=== PATIENT | female | born 1975 | race Caucasian/White ===

== ENCOUNTER 2018-07-13 05:17 | Outpatient (CLI) | payer BC, SELFPAY ==
--- NOTE | 2018-07-13 07:52 | DI.MAMMO_ITS ---
SYMPTOMS/DIAGNOSIS: SCREENING, Z12.31, FAMILY H/O BREAST CA, Z80.3 MAMMOGRAM: Mammograms were interpreted according to the usual protocol including computer analysis with CAD system, tomosynthesis and C view imaging. The breasts are heterogeneously dense. No dominant mass or clumped microcalcification is identified in either breast. The current examination is compared with previous examinations including 07/01 and there is a question of interval development of an area of vaguely rounded asymmetric density projected superiorly on MLO view of the left breast and questionably seen in the lateral portion of the left breast on tomosynthesis views. No other significant change seen. Additional mammographic views of the area of questionable asymmetric density/nodularity are requested to include CC and MLO spot compression views of the left breast. CONCLUSION: Additional mammographic views of the left breast requested as described above. Breast ultrasound may be indicated as well depending on the results of the additional mammographic views. Category O. Breast density Category C. MQSA ASSESSMENT OF FINDINGS: Incomplete: Needs additional imaging evaluation. Category 0. Patient will receive a letter notifying them of these results. Bi-RADS category C. The breasts are heterogeneously dense, which may obscure small masses.
== END 2018-07-13 05:37 ==
PROVIDERS: PCP Nurse Practitioner Women's Health; Visit Provider Nurse Practitioner Women's Health
DX: Z12.31 Encounter for screening mammogram for malignant neoplasm of breast (principal); Z80.3 Family history of malignant neoplasm of breast; R92.8 Other abnormal and inconclusive findings on diagnostic imaging of breast
CPT/HCPCS: 77063; 77067

== ENCOUNTER 2018-07-15 11:01 | Outpatient (CLI) | payer BC, SELFPAY ==
--- NOTE | 2018-07-15 14:43 | DI.COMBO_ITS ---
SYMPTOMS/DIAGNOSIS: F/U MAMMO, EVAL ASYMMETRIC DENSITY/NODULARITY LT BREAST ADDITIONAL MAMMOGRAPHIC VIEWS LEFT BREAST AND LEFT BREAST ULTRASOUND: Additional images are interpreted according to the usual protocol including tomosynthesis and 2D imaging. Additional mammographic views left breast and left breast ultrasound are interpreted in conjunction. These examinations were obtained to evaluate questioned nodule in the upper outer quadrant of the left breast on recurrent mammogram. Additional mammographic views confirm a smooth walled nodule of the upper outer quadrant of the left breast measuring 9-10 mm in diameter. This corresponds to an ultrasonographically identified fairly low echogenicity but solid lesion with some internal heterogeneity and moderately irregular border. No increased internal vascular flow seen. CONCLUSION: Indeterminate left breast mass, this measures about 9 mm mammographically and 11 mm ultrasonographically. This does not have typical characteristics of a fibroadenoma and biopsy is recommended to evaluate the possibility of malignancy. Category IV. Breast density Category C. MQSA ASSESSMENT OF FINDINGS: Suspicious. Biopsy should be considered. Category 4. Patient will receive a letter notifying them of these results. Bi-RADS category C. The breasts are heterogeneously dense, which may obscure small masses.
== END 2018-07-15 11:21 ==
PROVIDERS: PCP Nurse Practitioner Women's Health; Visit Provider Nurse Practitioner Women's Health
DX: Z12.31 Encounter for screening mammogram for malignant neoplasm of breast (principal); R92.8 Other abnormal and inconclusive findings on diagnostic imaging of breast; N63.21 Unspecified lump in the left breast, upper outer quadrant
CPT/HCPCS: 76642; 77063; 77067

== ENCOUNTER 2018-07-26 01:16 | Outpatient (CLI) | payer BC, SELFPAY ==
--- NOTE | 2018-07-26 13:30 | BREAST_PTH ---
PATIENT: Meghana Cuevas LOC: [facility] U#:[id number] AGE/SX: 43/F ROOM: RE07/26/[address]: Love Kelley MD : [id number] BED: DIS: 07/26/2018 SPEC #: [id number] RECD: 07/26/18 15:29 STATUS: EUSEBIO RERobin #: [id number] SYL: 07/26/18 13:[address]: Love Kelley DEPT: Surgical Specimen RECD BY: Kasey Sparks ENTERED: 07/26/18 15:31 SP TYPE: Breast OTHR DR: Candace Barrios Tissues: 1 - BREAST BX NEEDLE Procedures: GROSS AND MICRO LEVEL 4 Comments: [id number]
--- NOTE | 2018-07-26 13:59 | DI.US_ITS ---
SYMPTOMS/DIAGNOSIS: LEFT BREAST MASS LEFT BREAST BIOPSY: Sonography was utilized by Dr. Love Kelley during the performance of a left breast biopsy. A hypoechoic mass is seen at the 1 o'clock position of the left breast 2 cm from the nipple. Biopsy was performed by Dr. Kelley. Please refer to the procedure report for complete details.
--- NOTE | 2018-07-26 14:27 | W.PM.OP ---
Date of service: 07/26/18 Time of Service: 13:30 Operative Note DATE OF PROCEDURE: 07/26/18 PRE-OP DIAGNOSIS: Left breast lesion POST-OP DIAGNOSIS: same PROCEDURE: US guided needle Core bx of left Breast needle SURGEON: Love Kelley ANESTHESIA: local ESTIMATED BLOOD LOSS: 3 PATHOLOGY: other (core needle bx) COMPLICATIONS: None Patient's condition: stable Implants: titanium clip Indications: Ms. Cuevas is a 43-year-old female who I saw in the office last [place] with a new left breast lesion. Patient underwent a routine mammogram followed by ultrasound and was noted to have a 1.1 cm lesion in the left breast. It was categorized as a category 4. Ultrasound biopsy was recommended. Risk, benefits, complications were reviewed with her in the office and again in the radiology department and she wished to proceed. No guarantees were given or implied. Procedure Description: After informed consent was obtained the patient was placed in a supine position on the radiology table. Her left breast was exposed and the lesion was identified with ultrasound. Using a skin marker the skin just below the lesion was marked. The area was cleaned with ChloraPrep. A small 3 mm incision was made with an 11 blade. Using a 14-gauge core needle biopsy for biopsies were done of the lesion under ultrasound guidance. A small titanium marker was then also placed under ultrasound guidance into the lesion. The skin was cleaned and dried and a pressure dressing was applied. The patient tolerated the procedure well. There were no immediate complications. I will call the patient once we have results of her biopsies.
== END 2018-07-26 01:36 ==
PROVIDERS: PCP Nurse Practitioner Women's Health; Visit Provider Surgery
DX: N60.12 Diffuse cystic mastopathy of left breast (principal); Z80.3 Family history of malignant neoplasm of breast
CPT/HCPCS: 19083; 76942; 88305

== ENCOUNTER 2019-07-20 01:29 | Outpatient (CLI) | payer BC, SELFPAY ==
--- NOTE | 2019-07-20 15:45 | DI.MAMMO_ITS ---
EXAM: MG MAMMO SCREENING CLINICAL HISTORY: SCREENING, Z12.31, FAMILY HX BREAST CA, Z80.3 TECHNIQUE: Mammograms were interpreted according to the usual protocol including computer analysis w [employer] CAD system, tomosynthesis and C-view imaging. COMPARISON: June 2018 FINDINGS: The breasts are heterogeneously dense. No dominant mass or clumped microcalcification is identified in either breast. Left breast upper outer quadrant biopsy clip noted. Examination is compared with previous examinations including June 2018 and there is new area of no dularity projected in the lateral aspect of right breast on CC view measuring about 7 millimeters in diameter, this is incompletely visualized. No other significant change. IMPRESSION: Additional mammographic views of the right breast are requested to evaluate the possible new small ri ght breast mass, breast ultrasound recommended as well. Category 0, breast density category C. BI-RADS Cat 0 - Assessment Incomplete: Need additional imaging evaluation Breast Density - Category C - Heterogeneously dense
== END 2019-07-20 01:49 ==
PROVIDERS: PCP Nurse Practitioner Women's Health; Visit Provider Nurse Practitioner Women's Health
DX: Z12.31 Encounter for screening mammogram for malignant neoplasm of breast (principal); Z80.3 Family history of malignant neoplasm of breast; R92.8 Other abnormal and inconclusive findings on diagnostic imaging of breast
CPT/HCPCS: 77063; 77067

== ENCOUNTER 2019-07-25 01:05 | Outpatient (CLI) | payer BC, SELFPAY ==
--- NOTE | 2019-07-25 14:45 | DI.MAMMO_ITS ---
EXAM: MG MAMMO SCREEN CALL BACK UNI AND US BREAST RT LIMITED CLINICAL HISTORY: NEW AREA OF NODULARITY PROJECTED IN LATERAL ASPECT RT BREAST MEASURING ABOUT 7 MM TECHNIQUE: Ultrasound performed using standard protocol. COMPARISON: US breast LT limited from 07/15/2018 MG mammo screen call back UNI from 07/15/2018 MG MAMMO SCREEN CALL BACK UNI from 07/25/2019 FINDINGS: A CC spot compression view of the lateral right breast was performed. There is a small persistent ci rcumscribed area of nodularity. It is not definitely identified on the MLO view. Ultrasound shows a 5 millimeter cyst in the 8 o'clock position of the lower outer quadrant, 4 centime ters from the nipple. Two adjacent smaller cysts were seen. A cluster of cysts is seen posteriorly in the 9 o'clock position 2 centimeters from the nipple. No suspicious masses are identified. IMPRESSION: BI-RADS category 2, negative with benign findings. Yearly screening mammography is recommended. BI-RADS Cat 2 - Benign Findings Breast Density - Category C - Heterogeneously dense
== END 2019-07-25 01:25 ==
PROVIDERS: PCP Nurse Practitioner Women's Health; Visit Provider Nurse Practitioner Women's Health
DX: Z12.31 Encounter for screening mammogram for malignant neoplasm of breast (principal); R92.8 Other abnormal and inconclusive findings on diagnostic imaging of breast; N60.11 Diffuse cystic mastopathy of right breast
CPT/HCPCS: 76642; 77063; 77067

== ENCOUNTER 2019-09-12 15:15 | Outpatient (CLI) | payer BC, SELFPAY ==
[2019-09-15 11:14] LABS: SARS-CoV-2 RNA Undetected (Undetected); SARS-CoV-2 Specimen Source Nasal
== END 2019-09-12 15:35 ==
PROVIDERS: PCP Nurse Practitioner Women's Health; Visit Provider Nurse Practitioner Family
DX: Z20.828 Contact with and (suspected) exposure to other viral communicable diseases (principal); R50.9 Fever, unspecified; R06.02 Shortness of breath
CPT/HCPCS: U0003

== ENCOUNTER 2020-07-24 02:03 | Outpatient (CLI) | payer OTHER, SELFPAY ==
--- NOTE | 2020-07-24 | DI.MAMMO_ITS ---
EXAM: MAMMO SCREENING CLINICAL HISTORY: SCREENING, Z12.39 TECHNIQUE: Mammograms were interpreted according to the usual protocol including computer analysis w [facility] CAD system, tomosynthesis and C-view imaging. COMPARISON: 2011 through 2019 FINDINGS: The breasts are composed of heterogeneously dense fibroglandular densities, Breast Density category C . No suspicious masses or suspicious microcalcifications are seen. A biopsy marker clip is again noted in the upper outer quadrant of the left breast. No skin thickening or abnormal axillary lymph nodes are seen. There has been no significant change from prior exams. IMPRESSION: BI-RADS Category 1, Negative mammogram. Yearly screening mammography is recommended. Breast Density Category C, heterogeneously Dense. The mammogram demonstrates the patient's breast tissue is dense. Dense breast tissue is very common a nd is not abnormal but dense breast tissue can make it harder to find cancer on a mammogram. Also, de nse breast tissue may increase breast cancer risk. This information about the result of the mammogram report was provided to the patient to raise their awareness. Use this report when you speak with the patient about their risks for breast cancer, which includes their family history. At that time, you may recommend additional screening tests (Ultrasound or MRI) as they might be useful based on their r isk. A negative radiographic report should not delay biopsy if a dominant or clinically suspicious mass is present. Up to ten percent of cancers are not identified on mammography. A negative report may reinforce clinical impression. Adenosis and dense breasts may obscure an underlying neoplasm. False positive reports average 6 to 10%.
== END 2020-07-24 02:04 ==
LOC: DI 02:03
PROVIDERS: PCP Nurse Practitioner Women's Health; Visit Provider Nurse Practitioner Women's Health
DX: Z12.31 Encounter for screening mammogram for malignant neoplasm of breast (principal)
CPT/HCPCS: 77063; 77067

== ENCOUNTER 2021-07-07 10:34 | Outpatient (REF) | payer OTHER, SELFPAY ==
[2021-07-07 15:07] LABS: HCT 39.1 % (36.0-46.0); MCH 30.4 pg (27.0-33.0); MCHC 33.2 % (32.0-36.0); MCV 91.6 fL (80-95); MPV 10.3 fL (8.0-11.0); Platelet Count 274 10^3/uL (130-400); RBC 4.27 10^6/uL (3.93-5.22); RDW 12.2 % (11.7-14.6); RDW-SD 41.1 fL; WBC 6.14 10^3/uL (4.4-10.8)
[2021-07-07 15:18] LABS: ALT 31 U/L (14-59); AST 19 U/L (15-37); Alkaline Phosphatase 55 U/L (46-116); Anion Gap 6.9 mmol/L (3-11); BUN 13 mg/dL (7-18); Bilirubin, Total 0.3 mg/dL (0.2-1.0); CO2 28.1 mmol/L (21.0-32.0); CREATININE 0.7 mg/dL (0.55-1.02); Calcium 8.9 mg/dL (8.5-10.1); Calculated LDL 111 mg/dL (<100); Chloride 104 mmol/L (98-107); Cholesterol 185 mg/dL (<200); Glucose 85 mg/dL (74-106); HDL Cholesterol 61 mg/dL (40-60); Potassium 4.2 mmol/L (3.5-5.1); Sodium 139 mmol/L (136-145); Triglyceride 65 mg/dL (<150)
[2021-07-08 09:55] LABS: Hepatitis C Ab w Rflx HCV PCR Negative (Negative)
[2021-07-08 10:10] LABS: HIV-1/2 Ag & Ab Screen Negative (Negative)
== END 2021-07-07 10:35 | disposition home or self-care (01) ==
LOC: NCHCN 10:34
PROVIDERS: Visit Provider Nurse Practitioner Family
DX: Z00.00 Encounter for general adult medical examination without abnormal findings (principal); Z11.59 Encounter for screening for other viral diseases; Z11.4 Encounter for screening for human immunodeficiency virus [HIV]
CPT/HCPCS: 80053; 80061; 85027; 86803; 87389

== ENCOUNTER 2021-07-11 04:48 | Outpatient (CLI) | payer OTHER, SELFPAY ==
[2021-07-11] MEDS: Inhaler, Assist Device 1 EACH MC (15:09)
[2021-07-11] MEDS: Methacholine 100 MG VIAL IH (15:09)
[2021-07-11] MEDS: Albuterol HFA 18 GM 200 PUFF INH IH (15:09)
--- NOTE | 2021-07-11 16:21 | W.PFT ---
Date of service: 07/11/21 Time of Service: 13:03 Pulmonary Function Test Result Requesting Provider Geoffrey Shepard Indications: Chest tightness Interpretation Spirometry: There is no airflow limitation. Lung Volumes: There may be some hyperinflation. Diffusion Capacity: The diffusion is normal. Airway Pressure: Airways resistance is normal Impression Normal pulmonary function testing with the possibility of hyperinflation. Can consider pre and pot bronchodilator testing or a methacholine challenge test to assess for asthma. Clinical Correlation therefore is recommended.
--- NOTE | 2021-07-11 16:24 | W.PFT ---
Date of service: 07/11/21 Time of Service: 13:03 Pulmonary Function Test Result Requesting Provider Geoffrey Shepard Indications: Chest tightness Interpretation Spirometry: No airflow limitaiton.There was not a significant decrease in %FEV1 (only 10% drop at 16mg/mL) in response to methacholine. Impression Negative methacholine challenge test Clinical Correlation therefore is recommended.
== END 2021-07-11 04:49 | disposition home or self-care (01) ==
PROVIDERS: Visit Provider Nurse Practitioner Family
DX: R07.89 Other chest pain (principal)
CPT/HCPCS: 94060; 94070; 94726; 94729; 94010; J7674

== ENCOUNTER 2021-08-15 12:38 | Outpatient (REF) | payer OTHER, SELFPAY ==
[2021-08-15 18:35] LABS: Abs Immature Grans 0.01 10^3/uL (0.0-0.06); Absolute Basophil Count 0.03 10^3/uL (0.0-0.2); Absolute Eosinophil Count 0.03 10^3/uL (0.0-0.7); Absolute Lymphocyte Count 1.74 10^3/uL (1.2-3.4); Absolute Monocyte Count 0.29 10^3/uL (0.1-0.8); Absolute Neutrophil Count 2.65 10^3/uL (1.2-6.7); Basophils % 0.6; Eosinophils % 0.6; HGB 12.9 g/dL (11.2-15.7); Immature Grans % 0.2; Lymphocytes % 36.6; MCH 29.7 pg (27.0-33.0); MCHC 33.1 % (32.0-36.0); MCV 89.7 fL (80-95); MPV 10.6 fL (8.0-11.0); Monocytes % 6.1; Neutrophils % 55.9; Nucleated RBC 0 %; Platelet Count 245 10^3/uL (130-400); RBC 4.35 10^6/uL (3.93-5.22); RDW 11.9 % (11.7-14.6); RDW-SD 39.4 fL; WBC 4.75 10^3/uL (4.4-10.8)
[2021-08-15 18:50] LABS: ESR < 1 mm/hr (0-20)
[2021-08-15 19:14] LABS: Ferritin 103 ng/mL (8-252); Vitamin B12 553 pg/mL (193-986)
[2021-08-15 19:37] LABS: C-Reactive Protein < 0.05 mg/dL (0.0-0.3)
== END 2021-08-15 12:39 | disposition home or self-care (01) ==
LOC: NCHCN 12:38
PROVIDERS: Visit Provider Nurse Practitioner Family
DX: R20.2 Paresthesia of skin (principal); H57.89 Other specified disorders of eye and adnexa
CPT/HCPCS: 85652; 82607; 82728; 85025; 86140

== ENCOUNTER 2021-09-04 01:56 | Outpatient (CLI) | payer OTHER, SELFPAY ==
--- NOTE | 2021-09-04 08:21 | DI.MAMMO_ITS ---
Exam(s) MAMMO SCREENING EXAM: MAMMO SCREENING CLINICAL HISTORY: SCREENING, Z12.31 TECHNIQUE: Bilateral full field digital CC and MLO mammographic images were obtained with 3D tomosyn thesis and utilizing computer aided detection (CAD). COMPARISON: Available for comparison. FINDINGS: Masses/Architectural Distortion: None seen. There is a biopsy clip again seen in the upper outer quad rant of the left breast. Microcalcifications: No suspicious pleomorphic-type are seen. Skin Thickening/Nipple Retraction: None. IMPRESSION: 1. No significant interval change with no specific features of malignancy noted. 2. Unless there is more urgent need, screening mammography is recommended, as per [employer] [place] [employer] guidelines. BI-RADS Category 1 - Negative Breast Density - Category C - Heterogeneously dense Breast density category C or D implies that the patient has dense breast tissue. Dense breast tissue is very common and is not abnormal but dense breast tissue can make it harder to find cancer on a ma mmogram. Also, dense breast tissue may increase their breast cancer risk. This information about the result of the mammogram report was provided to the patient to raise their awareness. Use this report when you speak with the patient about their risks for breast cancer, which includes their family hist ory. At that time, you may recommend for more screening tests (Ultrasound or MRI) as they might be us eful based on their risk. A negative radiographic report should not delay biopsy if a dominant or clinically suspicious mass is present. Up to ten percent of cancers are not identified on mammography. A negative report may reinforce clinical impression. Adenosis and dense breasts may obscure an underlying neoplasm. False positive reports average 6 to 10%. Patient will receive a letter notifying them of these results.
== END 2021-09-04 02:16 ==
PROVIDERS: Visit Provider Nurse Practitioner Women's Health
DX: Z12.31 Encounter for screening mammogram for malignant neoplasm of breast (principal); R92.8 Other abnormal and inconclusive findings on diagnostic imaging of breast
CPT/HCPCS: 77063; 77067

== ENCOUNTER 2022-09-24 00:37 | Outpatient (CLI) | payer OTHER, SELFPAY ==
--- NOTE | 2022-09-24 07:30 | DI.MAMMO_ITS ---
Exam(s) MAMMO SCREENING EXAM: MAMMO SCREENING CLINICAL HISTORY: SCREENING, Z12.31 TECHNIQUE: Mammograms were interpreted according to the usual protocol including computer analysis w [employer] CAD system, tomosynthesis and C-view imaging. COMPARISON: 2015 through 2021 FINDINGS: The breasts are composed of heterogeneously dense fibroglandular densities, Breast Density category C . No suspicious masses or suspicious microcalcifications are seen. The biopsy marker clip is again not ed in the upper outer quadrant of the left breast. No skin thickening or abnormal axillary lymph nodes are seen. There has been no significant change from prior exams. IMPRESSION: BI-RADS Category 1, Negative mammogram. Yearly screening mammography is recommended. Breast Density Category C, heterogeneously Dense. The mammogram demonstrates the patient's breast tissue is dense. Dense breast tissue is very common a nd is not abnormal but dense breast tissue can make it harder to find cancer on a mammogram. Also, de nse breast tissue may increase breast cancer risk. This information about the result of the mammogram report was provided to the patient to raise their awareness. Use this report when you speak with the patient about their risks for breast cancer, which includes their family history. At that time, you may recommend additional screening tests (Ultrasound or MRI) as they might be useful based on their r isk. A negative radiographic report should not delay biopsy if a dominant or clinically suspicious mass is present. Up to ten percent of cancers are not identified on mammography. A negative report may reinforce clinical impression. Adenosis and dense breasts may obscure an underlying neoplasm. False positive reports average 6 to 10%.
== END 2022-09-24 00:57 ==
PROVIDERS: PCP Family Medicine; Visit Provider Nurse Practitioner Women's Health
DX: Z12.31 Encounter for screening mammogram for malignant neoplasm of breast (principal); R92.2 Inconclusive mammogram
CPT/HCPCS: 77063; 77067

== ENCOUNTER 2022-12-30 16:34 | Outpatient (REF) | payer OTHER, SELFPAY ==
[2022-12-30 17:59] LABS: ALT 18 U/L (14-59); AST 15 U/L (15-37); Albumin 4.1 g/dL (3.4-5.0); Alkaline Phosphatase 55 U/L (46-116); Bilirubin, Direct 0.1 mg/dL (0.0-0.2); Bilirubin, Total 0.4 mg/dL (0.2-1.0); Total Protein 7.2 g/dL (6.4-8.2)
== END 2022-12-30 16:35 | disposition home or self-care (01) ==
LOC: NCHCN 16:34
PROVIDERS: PCP Family Medicine; Visit Provider Family Medicine
DX: Z51.81 Encounter for therapeutic drug level monitoring (principal)
CPT/HCPCS: 80076

== ENCOUNTER → 2023-06-24 02:10 | Outpatient (CLI) | payer OTHER, MEDICAID, SELFPAY ==
--- NOTE | 2023-06-24 | DI.US_ITS ---
Exam(s) US BREAST LT COMPLETE US BREAST RT COMPLETE MG MAMMO DIAGNOSTIC BI EXAM: MG MAMMO DIAGNOSTIC BI BILATERAL COMPLETE BREAST ULTRASOUND CLINICAL HISTORY: LT BREAST MASS 3 OCLOCK,n63.20. TECHNIQUE: BILATERAL CC AND MLO mammographic images were obtained with 3D tomosynthesis technique an d utilizing computer aided detection (CAD). WE ALSO PERFORMED BILATERAL SPOT COMPRESSION VIEWS WE ALSO PERFORMED BILATERAL COMPLETE BREAST ULTRASOUND, INCLUDING ALL 4 QUADRANTS OF BOTH BREASTS WELL THE BILATERAL AXILLARY REGIONS. COMPARISON: Prior mammograms were reviewed. FINDINGS: DIAGNOSTIC BILATERAL MAMMOGRAM: In the upper-outer quadrant of the left breast there is a lobulated noncalcified nodular density joyce uring approximately 3 by 2.7 cm on the mammogram, this corresponding to the new palpable finding. Thi s is shown to be a benign cyst on ultrasound performed today immediately following the mammogram (see below). There are no new obvious findings in the immediate vicinity of the biopsy marker clip located more an teriorly in the left breast upper outer quadrant region. In the right breast there is a new posteriorly located nodular density in the upper outer quadrant me asuring approximately 1.1 x 0.9 cm. There are no new spiculated masses seen in either breast on mammography. There are no malignant-appea ring microcalcification groups. There is no new architectural distortion or skin thickening-traction. BILATERAL COMPLETE BREAST ULTRASOUND: LEFT BREAST: At the 2 o'clock position there is a 2.9 by 2 cm simple cyst which corresponds to the palpable findin g and dominant nodule on the mammogram. No internal septations nor mural nodularity. At the 12 o'clock position there is wider than taller well-defined lobulated nodule measuring 6 x 4 m m with slightly increased through transmission. Probably a small fibroadenoma. At the 1 o'clock position there is the previously biopsied open (July 2018) nodule which is proba leo also another fibroadenoma, presently measuring 1 point 0 x 0.8 cm. Measurement appears slightly l arger than prior measurements. Cannot identify the mammographically visible biopsy marker clip on ult rasound. There are no other focal ultrasound findings in all 4 quadrants of the left breast. Scanning of the left axilla is negative for significant adenopathy. RIGHT BREAST: At the 7 o'clock position there are 2 findings. The deepest is a cyst which measures 1.0 x [address] above this is a 1.4 x 0.3 cm wider than taller conglomeration microcysts. At the 8 o'clock position there are 2 adjacent microcysts measuring 7 x 4 and 3 x 3 cm. Also another 5 x 4 mm microcyst at the 8 o'clock position. At the 9 o'clock position there is a 6 x 3 millimeter microcyst. At the 10 o'clock position there is a 1 cm round cyst which most probably corresponds to the new find ing on the mammogram. There are no solid lesions in all 4 quadrants of the right breast. The right axilla is negative for significant adenopathy. IMPRESSION: 1. The new palpable finding at 2 o'clock position of the left breast is a 2.9 x 2.0 cm simple cyst on ultrasound. 2. At the 1 o'clock position of the left breast there is a solid nodule seen on ultrasound which appe ars to be the nodule which underwent prior ultrasound-guided biopsy in July 2018 (apparently [place]). Measurements today are slightly larger than 2019. 3. At the 12 o'clock position of the left breast there is a small lobulated 6 x 4 mm new nodule which is probably a fibroadenoma. 4. All the findings in the opposite-right breast appear to be cysts on ultrasound, including the new posteriorly located nodule on the mammogram. Appropriate follow-up is repeat bilateral mammogram and ultrasound in three-four months time. This is mostly 2 restudy the 2 solid nodules at the 12 and 1 o'clock positions of the left breast. The reason for performing the repeat mammogram of also the right breast this to ensure mammographic s tability of the new nodule located posteriorly in the right breast. The patient was informed of the findings and follow-up recommendations by myself prior to leaving the department today. BI-RADS Category 3 - 3 month - Probably Benign Finding: Recommend follow-up mammography in 3 months Breast Density - Category C - Heterogeneously dense Breast density Category C or D implies that the patient has dense breast tissue. Dense breast tissue can make it harder to find cancer on a mammogram. Dense breast tissue is also associated with an incr eased risk of breast cancer. This information about the result of the mammogram report was provided to the patient to raise their awareness. Use this report when you speak with the patient about their risks for breast cancer, which includes their family history. At that time, you may recommend additional screening tests (Ultrasoun d or MRI) as these tests may add significant information. A negative radiographic report should not delay biopsy if a dominant or clinically suspicious mass is present. Up to ten percent of cancers are not identified on mammography. A negative report may reinforce clinical impression. Adenosis and dense breasts may obscure an underlying neoplasm. False positive reports average 6 to 10%. Patient will receive a letter notifying them of these results.
== END ==
PROVIDERS: PCP Family Medicine; Visit Provider Nurse Practitioner Women's Health
DX: Z12.31 Encounter for screening mammogram for malignant neoplasm of breast (principal); N63.21 Unspecified lump in the left breast, upper outer quadrant
CPT/HCPCS: 76642; 77062; 77066; G0279

== ENCOUNTER → 2023-09-15 02:20 | Outpatient (CLI) | payer OTHER, MEDICAID, SELFPAY ==
--- NOTE | 2023-09-15 | DI.US_ITS ---
Exam(s) US BREAST LT COMPLETE MAMMO DIAGNOSTIC BI EXAM: MAMMO DIAGNOSTIC BI and U/S breast LT complete CLINICAL HISTORY: N63.20 Unspecfied lump in the left breast, unspecified quadrant; 3 mo f/u. TECHNIQUE: Craniocaudal and mediolateral oblique Full Field Digital Mammography views with Computer Aided Diagnosis followed by Tomosynthesis and complete left breast ultrasound. COMPARISON: Comparison is made with prior examinations. FINDINGS: Mammography/Tomosynthesis: Masses/Architectural Distortion: The nodule in the upper outer quadrant of the right breast is shown interval decrease in size compared to the prior examination. Prior ultrasounds showed this as a cyst . No suspicious nodules or areas of architectural distortion are seen in the right breast. In the l eft breast, there is again seen an ovoid density in the outer left breast previously shown to be a cy st. It is shown slight decrease in size compared to the prior examination. There is a biopsy clip w ithin a nodule in the upper outer quadrant of the left breast. This is unchanged in position. Microcalcifictions: No suspicious pleomorphic-type are seen. Skin Thickening/Nipple Retraction: None. Complete left breast US: All 4 quadrants of the left breast were evaluated sonographically in additio n to the retroareolar region and left axilla. Echotexture: Normal appearance of the glandular tissue. Shadowing: No suspicious foci. Cyst: There is a stable cyst in the 2 o'clock position of the left breast 3 cm from the nipple. This corresponds to the large density seen on the mammogram. There is a stable ovoid asymmetric density measuring 4 x 5 mm at the 1 o'clock position of the left breast 2 cm from the nipple which is unchang ed. There is also an hypoechoic nodule measuring 0.8 cm at the 1 o'clock position of the left breast 3 cm from the nipple which is unchanged. This nodule was previously biopsied per patient. Solid lesions: None seen. Ductal dilation: None. IMPRESSION: 1. No definite evidence of malignancy is noted. 2. A six-month follow-up left mammogram and ultrasound are requested for re-evaluation. Yearly scree jerrell mammography on the right breast is recommended. 3. The findings were discussed with the patient on the date of the examination. BI-RADS Category 3 - 6 month - Probably Benign Finding: Recommend follow-up imaging in 6 months Breast Density - Category C - Heterogeneously dense Breast density Category C or D implies that the patient has dense breast tissue. Dense breast tissue can make it harder to find cancer on a mammogram. Dense breast tissue is also associated with an incr eased risk of breast cancer. This information about the result of the mammogram report was provided to the patient to raise their awareness. Use this report when you speak with the patient about their risks for breast cancer, which includes their family history. At that time, you may recommend additional screening tests (Ultrasoun d or MRI) as these tests may add significant information. A negative radiographic report should not delay biopsy if a dominant or clinically suspicious mass is present. Up to ten percent of cancers are not identified on mammography. A negative report may reinforce clinical impression. Adenosis and dense breasts may obscure an underlying neoplasm. False positive reports average 6 to 10%. Patient will receive a letter notifying them of these results.
== END ==
PROVIDERS: PCP Family Medicine; Visit Provider Nurse Practitioner Women's Health
DX: N60.12 Diffuse cystic mastopathy of left breast (principal); N63.21 Unspecified lump in the left breast, upper outer quadrant; N63.11 Unspecified lump in the right breast, upper outer quadrant; N60.01 Solitary cyst of right breast; R92.333 Mammographic heterogeneous density, bilateral breasts
CPT/HCPCS: 76642; 77062; 77066; G0279

== ENCOUNTER 2024-03-31 00:24 | Outpatient (CLI) | payer OTHER, SELFPAY ==
--- NOTE | 2024-03-31 | DI.US_ITS ---
Exam(s) MAMMO DIAGNOSTIC BI US BREAST LT LIMITED EXAM: MAMMO DIAGNOSTIC BI and U/S breast LT limited CLINICAL HISTORY: LUMP LEFT BREAST N63.20, 6 mo fu,r92.8,. TECHNIQUE: Craniocaudal and mediolateral oblique Full Field Digital Mammography views with Computer Aided Diagnosis followed by Tomosynthesis and left breast ultrasound. COMPARISON: Comparison is made with prior examinations. FINDINGS: Mammography/Tomosynthesis: Masses/Architectural Distortion: There is a well corticated nodule again seen in the upper outer quad rant of the left breast which appears stable. There is a biopsy clip in the upper outer quadrant whi ch is stable in position. No new nodules are seen. No new areas of architectural distortion are see n. Microcalcifictions: No suspicious pleomorphic-type are seen. Skin Thickening/Nipple Retraction: None. Limited left breast US: Echotexture: Normal appearance of the glandular tissue. Shadowing: No suspicious foci. Cyst: There has been interval decrease in size of the cyst at the 2 o'clock position 3 cm from the ni pple. It now measures 2.3 cm maximally. This compares to 5 cm on the prior examination. The smalle r cysts seen previously have shown interval decrease in size. No new cysts are seen. Solid lesions: The area previously seen at 1 o'clock 1 cm from the nipple appears represent normal fi broglandular tissue. Ductal dilation: None. IMPRESSION: 1. No evidence of malignancy is noted. 2. Unless there is more urgent need, follow-up screening mammography is recommended, as per [employer] guidelines. 3. The findings were discussed with the patient on the date of the examination. BI-RADS Category 2 - Benign Findings Breast Density - Category C - Heterogeneously dense Breast density Category C or D implies that the patient has dense breast tissue. Dense breast tissue can make it harder to find cancer on a mammogram. Dense breast tissue is also associated with an incr eased risk of breast cancer. This information about the result of the mammogram report was provided to the patient to raise their awareness. Use this report when you speak with the patient about their risks for breast cancer, which includes their family history. At that time, you may recommend additional screening tests (Ultrasoun d or MRI) as these tests may add significant information. A negative radiographic report should not delay biopsy if a dominant or clinically suspicious mass is present. Up to ten percent of cancers are not identified on mammography. A negative report may reinforce clinical impression. Adenosis and dense breasts may obscure an underlying neoplasm. False positive reports average 6 to 10%. Patient will receive a letter notifying them of these results.
== END 2024-03-31 00:44 ==
LOC: DI 00:24
PROVIDERS: PCP Family Medicine; Visit Provider Nurse Practitioner Women's Health
DX: Z12.31 Encounter for screening mammogram for malignant neoplasm of breast (principal); N63.22 Unspecified lump in the left breast, upper inner quadrant
CPT/HCPCS: 76642; 77062; 77066; G0279

== ENCOUNTER 2025-04-03 00:15 | Outpatient (CLI) | payer OTHER, SELFPAY ==
--- NOTE | 2025-04-03 07:47 | DI.MAMMO_ITS ---
Exam(s) MAMMO SCREENING EXAM: MAMMO SCREENING CLINICAL HISTORY: SCREENING, Z12.31 TECHNIQUE: Bilateral full field digital CC and MLO mammographic images were obtained with 3D tomosynthesis and utilizing computer aided detection (CAD). COMPARISON: Comparison is made with prior examinations. FINDINGS: Masses/Architectural Distortion: No suspicious masses or areas of architectural distortion are present. There has been significant decrease in size of the cyst in the upper outer quadrant of the left breast. The biopsy clip in the upper outer quadrant is stable in location. Microcalcifications: No suspicious pleomorphic-type are seen. Skin Thickening/Nipple Retraction: None. IMPRESSION: 1. No significant interval change with no specific features of malignancy noted. 2. Unless there is more urgent need, screening mammography is recommended, as per [employer] [place] [employer] guidelines. BI-RADS Category 2 - Benign Findings Breast Density - Category C - The breast are heterogeneously dense, which may obscure small masses. Breast density Category C or D implies that the patient has dense breast tissue. Dense breast tissue can make it harder to find cancer on a mammogram. Dense breast tissue is also associated with an increased risk of breast cancer. This information about the result of the mammogram report was provided to the patient to raise their awareness. Use this report when you speak with the patient about their risks for breast cancer, which includes their family history. At that time, you may recommend additional screening tests (Ultrasound or MRI) as these tests may add significant information. A negative radiographic report should not delay biopsy if a dominant or clinically suspicious mass is present. Up to ten percent of cancers are not identified on mammography. A negative report may reinforce clinical impression. Adenosis and dense breasts may obscure an underlying neoplasm. False positive reports average 6 to 10%. Patient will receive a letter notifying them of these results.
== END 2025-04-03 00:35 ==
PROVIDERS: PCP Family Medicine; Visit Provider Nurse Practitioner Women's Health
DX: Z12.31 Encounter for screening mammogram for malignant neoplasm of breast (principal)
CPT/HCPCS: 77063; 77067